=== PATIENT | female | born 1985 | race Caucasian/White ===

== ENCOUNTER 2020-08-01 19:32 | Emergency (ER) | payer BC, SELFPAY ==
--- NOTE | 2020-08-01 20:04 | USR_ITS ---
PROCEDURE INFORMATION: Exam: US , Limited Exam date and time: 08/01/2020 9:16 PM Age: 35 years old Clinical indication: Lmp or gestational age (in weeks): 10w6d; ; Prior surgery; Surgery date: 6+ months; Surgery type: RT ov removed due to endometrioma and torsion; Patient HX: Bright red bleeding x 1 day; Additional info: 10 wks preg bleeding TECHNIQUE: Imaging protocol: Real-time ultrasound of the maternal uterus with image documentation. Exam focused on the clinical indication. COMPARISON: No relevant prior studies available. FINDINGS: Gestation: [place] rump length 3.9 cm. Gestational sac 4.38 cm. Yolk sac 0.4 cm. heart rate: heart rate 176 bpm. BIOMETRY: Gestational age (AUA): Ultrasound gestational age 10 weeks 6 days MATERNAL: Cervix: Cervical length is 3.6 cm. Right adnexa: Right ovary has been removed. Left adnexa: Normal appearing left ovary. US/US OB limited [id number] IMPRESSION: Single viable intrauterine gestation. No acute abnormalities identified.
[2020-08-01 20:10] VITALS: BP 157/89; PULSE 93; RESP 16; TEMP 36.8; O2SAT 99; BMI 24.2
--- NOTE | 2020-08-01 21:53 | W.ED.FEMALGU ---
HPI - Female Genitourinary General: Chief complaint: Urogenital-Female Stated complaint: 10 WKS PREG, BLEEDING Time Seen by Provider: 08/01/20 21:48 Source: patient Mode of arrival: ambulatory Limitations: no limitations History of Present Illness: HPI Narrative: Patient is a very nice 35-year-old female at approximately 10 weeks here for concerns for an episode of vaginal bleeding. Patient tells me approximately 1 to 2 hours ago she noticed she had approximately 1 tablespoon of bright red blood after wiping. Patient tells me she has not had any further bleeding. She is not having any cramping or pain. Patient very concerned as her and her have been trying to conceive for over a year. Patient has OB established in [place], [place]. elicited complaint: vaginal bleeding Onset (ago): hour(s) Severity: mild Consistency: now resolved Vaginal bleeding: scant Associated symptoms: Reports no associated symptoms; Deny abdominal pain, nausea or vaginal discharge Treatment prior to arrival: none Sexual activity: Yes Patient : Yes Related Data: : 1 Para: 0 Review of Systems Const: Denies: fever(s) Card: Denies: chest pain Resp: Denies: dyspnea GI: Denies: abdominal pain, nausea or vomiting : Reports: vaginal bleeding; Denies: flank pain, dysuria, hematuria, genital lesions, genital pruritis, vaginal odor, vaginal discharge or pelvic pain Skin/Breast: Denies: rash [facility] ED Female Reproductive History: : 1 Physical Exam Const: COMMON NORMALS: no acute distress, average body habitus, no limitations, healthy appearing, alert and well nourished GENERAL APPEARANCE: cooperative GI: COMMON NORMALS: Normal to inspection, nondistended, normoactive bowel sounds present, Soft to palpation, non-tender, No hepatosplenomegaly present and no masses PALPATION: Yes Soft to palpation and Yes No hepatosplenomegaly present : COMMON NORMALS: Yes no CVA tenderness BLADDER/KIDNEY EXAM: Yes no CVA tenderness Back/Pelvis: COMMON NORMALS: no CVA tenderness Neuro: SENSORIUM/ORIENTATION: Yes alert Course Vital Signs: Vital signs: Vital Signs Temperature 98.2 F 08/01/20 20:10 Pulse Rate 93 08/01/20 20:10 Respiratory Rate 16 08/01/20 20:10 Blood Pressure 157/89 08/01/20 20:10 Pulse Oximetry 99 08/01/20 20:10 MDM - Female MDM Narrative: Medical decision making narrative: Patient's ultrasound shows a single live IUP at approximately 10w6d with HR of 176. Labs are non-concerning. She is A+ thus not requiring rhogam. Hcg corresponds to gestational age. I do not feel there is any reason to perform pelvic exam today. Recommend follow up with her OB which she agrees to. Return to ED precautions given. Lab Data: Labs: Lab Results 08/01/20 08/01/20 08/01/20 Range/Units 22:08 22:12 22:12 WBC 11.5 H (4.0-10.0) 10^3/ uL RBC 4.16 (4.1-5.3) 10^6/u L Hgb 13.2 (11.5-15.3) g/dL Hct 39.9 (37.0-47.0) % MCV 95.9 (81-99) fL MCH 31.7 (28.0-34.0) pg MCHC 33.1 (30.0-36.0) g/dL RDW 12.5 (12.1-15.1) % Plt Count 341 (130-400) 10^3/c mm MPV 9.6 (7.4-10.4) fL Neut % (Auto) 79.9 % Lymph % (Auto) 14.1 % Towns % (Auto) 5.2 % Eos % (Auto) 0.2 % Baso % (Auto) 0.3 % Neut # (Auto) 9.15 H (1.8-7.7) 10^3/u L Lymph # (Auto) 1.6 (0.8-4.8) 10^3/u L Towns # (Auto) 0.6 (0.2-0.9) 10^3/u L Eos # (Auto) 0.0 (0.0-0.8) 10^3/u L Baso # (Auto) 0.0 (0.0-0.1) 10^3/u L Nucleated RBC % (a uto) 0 % Nucleated RBCs # 0.0 /100WBC Sodium (136-145) mmol/L Potassium (3.5-5.1) mmol/L Chloride (98-107) mmol/L Carbon Dioxide (22-29) mmol/L Anion Gap (5-19) BUN (6-20) mg/dL Creatinine (0.5-0.9) mg/dL GFR Calculation (90-130) mL/min Glucose (65-115) mg/dL Calculated Osmolal ity (285-295) mOsm/k g Calcium (8.5-10.5) mg/dL Total Bilirubin (0.15-1.2) mg/dL AST (0-32) U/L ALT (0-33) U/L Alkaline Phosphata se (35-105) IU/L Total Protein (6.6-8.7) g/dL Albumin (3.5-5.2) g/dL Globulin (1.3-4.6) g/dL Ser , Yunior i-Qnt mIU/mL Urine Color Yellow (Yellow) Urine Appearance Clear (CLEAR) Urine pH 6 (5-7) Ur Specific Gravit y 1.010 (1.005-1.030) Urine Protein Neg (Negative) Urine Glucose (UA) Norm (Normal) Urine Ketones Negative (Negative) Urine Blood 2+ H (Negative) Urine Nitrate Negative (Negative) Urine Bilirubin Neg (Negative) Urine Urobilinogen Norm (Negative) mg/dL Ur Leukocyte Cristina ase Negative (Negative) Urine RBC 0-4 H (0-2) /hpf Urine WBC 0-4 H (0-5) /hpf Ur Squamous Epith Cells 0-4 H (0-5) /hpf Amorphous Sediment Not Reportable Urine Bacteria Trace (NONE) /hpf Blood Type A Positive Rho(D) Type Positive / 4+ 08/01/20 Range/Units 22:12 WBC (4.0-10.0) 10^3/ uL RBC (4.1-5.3) 10^6/u L Hgb (11.5-15.3) g/dL Hct (37.0-47.0) % MCV (81-99) fL MCH (28.0-34.0) pg MCHC (30.0-36.0) g/dL RDW (12.1-15.1) % Plt Count (130-400) 10^3/c mm MPV (7.4-10.4) fL Neut % (Auto) % Lymph % (Auto) % Towns % (Auto) % Eos % (Auto) % Baso % (Auto) % Neut # (Auto) (1.8-7.7) 10^3/u L Lymph # (Auto) (0.8-4.8) 10^3/u L Towns # (Auto) (0.2-0.9) 10^3/u L Eos # (Auto) (0.0-0.8) 10^3/u L Baso # (Auto) (0.0-0.1) 10^3/u L Nucleated RBC % (a uto) % Nucleated RBCs # /100WBC Sodium 133 L (136-145) mmol/L Potassium 3.7 (3.5-5.1) mmol/L Chloride 101 (98-107) mmol/L Carbon Dioxide 19 L (22-29) mmol/L Anion Gap 16.7 (5-19) BUN 11 (6-20) mg/dL Creatinine 0.5 (0.5-0.9) mg/dL GFR Calculation 142.1 H (90-130) mL/min Glucose 98 (65-115) mg/dL Calculated Osmolal ity 275 L (285-295) mOsm/k g Calcium 8.6 (8.5-10.5) mg/dL Total Bilirubin 0.2 (0.15-1.2) mg/dL AST 14 (0-32) U/L ALT 13 (0-33) U/L Alkaline Phosphata se 48 (35-105) IU/L Total Protein 7.2 (6.6-8.7) g/dL Albumin 4.1 (3.5-5.2) g/dL Globulin 3.1 (1.3-4.6) g/dL Ser , Yunior i-Qnt 179875.00 mIU/mL Urine Color (Yellow) Urine Appearance (CLEAR) Urine pH (5-7) Ur Specific Gravit y (1.005-1.030) Urine Protein (Negative) Urine Glucose (UA) (Normal) Urine Ketones (Negative) Urine Blood (Negative) Urine Nitrate (Negative) Urine Bilirubin (Negative) Urine Urobilinogen (Negative) mg/dL Ur Leukocyte Cristina ase (Negative) Urine RBC (0-2) /hpf Urine WBC (0-5) /hpf Ur Squamous Epith Cells (0-5) /hpf Amorphous Sediment Urine Bacteria (NONE) /hpf Blood Type Rho(D) Type Imaging Data: US OB: Radiologist's impression: [address] [address] Ultrasound Report Signed Patient: Aura Gallardo #: [id number] : 1985Acct#:[id number] Age/Sex: 35 / FADM Date: 08/01/20 Loc: ERRoom/Bed: Attending Dr: Ordering Provider/Ordering MD: Nat Wade Date of Service: 08/01/20 Procedure(s): US OB limited [id number] Accession Number(s): [id number] Report Number: [id number] PROCEDURE INFORMATION: Exam: US , Limited Exam date and time: 08/01/2020 9:16 PM Age: 35 years old Clinical indication: Lmp or gestational age (in weeks): 10w6d; ; Prior surgery; Surgery date: 6+ months; Surgery type: RT ov removed due to endometrioma and torsion; Patient HX: Bright red bleeding x 1 day; Additional info: 10 wks preg bleeding TECHNIQUE: Imaging protocol: Real-time ultrasound of the maternal uterus with image documentation. Exam focused on the clinical indication. COMPARISON: No relevant prior studies available. FINDINGS: Gestation: [place] rump length 3.9 cm. Gestational sac 4.38 cm. Yolk sac 0.4 cm. heart rate: heart rate 176 bpm. BIOMETRY: Gestational age (AUA): Ultrasound gestational age 10 weeks 6 days MATERNAL: Cervix: Cervical length is 3.6 cm. Right adnexa: Right ovary has been removed. Left adnexa: Normal appearing left ovary. US/US OB limited [id number] IMPRESSION: Single viable intrauterine gestation. No acute abnormalities identified. Dictated By:Jose Angel Valenzuela Signed By:Job Valenzuela Date/Time:08/01/202211 DD/ 11 Discharge Plan Discharge Patient Disposition: Home Clinical Impression: First trimester bleeding Condition: Stable Discharge Orders: Discharge ED (Routine); Ordered 08/01/20 Ordered By: Nat Wade Referrals: Logan Angel CADDIE SUPERVISOR-C [Primary Care Provider] - Patient Instructions: Threatened Miscarriage (ED) Activity Restrictions/Additional Instructions: As we discussed please contact your OB doctor on Tuesday for further instructions for follow-up. You may return to the emergency department at anytime for severe vaginal bleeding, cramping, severe pain, or any other concerns you may have. Coding Level of Care Code ED Procedure Analyst for Marianela Tim
[2020-08-01 22:38] LABS: Add Urine Microscopic? YES; Bacteria Urine TRACE /hpf; Bilirubin Urine Neg (Negative); Blood Urine 2+ (Negative); Glucose Urine UA Norm (Normal); Ketones Urine Negative (Negative); Leukocyte Esterase Urine Negative (Negative); Nitrate Urine Negative (Negative); Protein Urine Neg (Negative); RBC Urine 0-4 /hpf (0-2); Squamous Epithelial Cell Urine 0-4 /hpf (0-5); Urine Appearance Clear (CLEAR); Urine Color Yellow (Yellow); Urobilinogen Urine Norm (Negative); WBC Urine 0-4 /hpf (0-5); pH Urine 6 (5-7)
[2020-08-01 22:42] LABS: Basophils % 0.3 %; Eosinophils % 0.2 %; Hematocrit 39.9 % (37.0-47.0); Hemoglobin 13.2 g/dL (11.5-15.3); Lymphocytes # 1.6 10^3/uL (0.8-4.8); Lymphocytes % 14.1 %; Mean Corpuscular HGB Conc 33.1 g/dL (30.0-36.0); Mean Corpuscular Hemoglobin 31.7 pg (28.0-34.0); Mean Corpuscular Volume 95.9 fL (81-99); Mean Platelet Volume 9.6 fL (7.4-10.4); Monocytes # 0.6 10^3/uL (0.2-0.9); Monocytes % 5.2 %; Neutrophils # 9.15 10^3/uL (1.8-7.7); Neutrophils % 79.9 %; Nucleated Red Blood Cells % 0 %; Platelet Count 341 10^3/cmm (130-400); Red Blood Count 4.16 10^6/uL (4.1-5.3); Red Cell Distribution Width 12.5 % (12.1-15.1); White Blood Count 11.5 10^3/uL (4.0-10.0)
[2020-08-01 23:10] LABS: Alanine Aminotransferase 13 U/L (0-33); Albumin Level 4.1 g/dL (3.5-5.2); Alkaline Phosphatase 48 IU/L (35-105); Anion Gap 16.7 (5-19); Aspartate Amino Transferase 14 U/L (0-32); Blood Urea Nitrogen 11 mg/dL (6-20); Calcium 8.6 mg/dL (8.5-10.5); Carbon Dioxide 19 mmol/L (22-29); Chloride 101 mmol/L (98-107); Globulin 3.1 g/dL (1.3-4.6); Glomerular Filtration Rate 142.1 mL/min (90-130); Glucose 98 mg/dL (65-115); Osmolality Calculated 275 mOsm/kg (285-295); Potassium 3.7 mmol/L (3.5-5.1); Sodium 133 mmol/L (136-145); Total Bilirubin 0.2 mg/dL (0.15-1.2); Total Protein 7.2 g/dL (6.6-8.7)
== END 2020-08-01 23:59 | disposition home or self-care (01) ==
PROVIDERS: Emergency Provider Physician Assistant; PCP Nurse Practitioner
DX: O20.9 Hemorrhage in early pregnancy, unspecified (principal); Z3A.10 10 weeks gestation of pregnancy
CPT/HCPCS: 36415; 76815; 80053; 81001; 84702; 85025; 86900; 99283

== ENCOUNTER 2023-05-18 13:59 | Emergency (ER) | payer BC, SELFPAY ==
[2023-05-18 14:04] VITALS: BMI 24.2
[2023-05-18 14:07] VITALS: BP 133/84; PULSE 87; RESP 15; TEMP 36.7; O2SAT 99
[2023-05-18 14:54] LABS: Basophils % 0.6 %; Eosinophils % 0.2 %; Hematocrit 37.1 % (36-47); Lymphocytes # 0.6 10^3/uL (0.8-4.8); Lymphocytes % 12.6 %; Mean Corpuscular HGB Conc 32.3 g/dL (30-55); Mean Corpuscular Hemoglobin 30.3 pg (27-33); Mean Corpuscular Volume 93.7 fl (85-98); Mean Platelet Volume 9.2 fL (7.4-10.4); Monocytes # 0.6 10^3/uL (0.2-0.9); Monocytes % 13.2 %; Neutrophils # 3.55 10^3/uL (1.8-7.7); Neutrophils % 73.2 %; Nucleated Red Blood Cells % 0 %; Platelet Count 267 10^3/cmm (157-399); Red Blood Count 3.96 10^6/uL (3.85-5.65); Red Cell Distribution Width 12.7 % (12.1-15.1); White Blood Count 4.85 10^3/uL (3.29-11.43)
[2023-05-18 15:13] LABS: Alanine Aminotransferase 12 U/L (0-33); Albumin Level 4.3 g/dL (3.5-5.2); Alkaline Phosphatase 51 U/L (35-105); Anion Gap 12.7 (5-19); Aspartate Amino Transferase 16 U/L (0-32); Blood Urea Nitrogen 13 mg/dL (6-20); Calcium 9.4 mg/dL (8.5-10.5); Carbon Dioxide 27 mmol/L (22-29); Chloride 103 mmol/L (98-107); Creatinine Clr Calc Pharmacy 128.4984; Globulin 3.1 g/dL (1.3-4.6); Glomerular Filtration Rate 113.1 mL/min (90-130); Glucose 110 mg/dL (65-115); Osmolality Calculated 289 mOsm/kg (285-295); Potassium 3.7 mmol/L (3.5-5.1); Sodium 139 mmol/L (136-145); Total Bilirubin 0.2 mg/dL (0.15-1.2); Total Protein 7.4 g/dL (6.6-8.7)
[2023-05-18 15:17] LABS: HCG, Serum Qual Negative (Negative)
--- NOTE | 2023-05-18 16:58 | ED_ITS ---
Documented by User: DAY Loredo 05/18/23 18:06 HPI - Weakness 2 General: Chief complaint: Weakness Stated complaint: weakness, numbness right side of face Time Seen by Provider: 05/18/23 16:52 History of Present Illness: 38-year-old female comes in today with c omplaints of numbness to the right side of face, chest discomfort, abdominal discomfort, and tingling in all extremities. Patient reports the numbness to the face started this morning. Patient has had other symptoms prior to today. Patient only takes a One-A-Day vitamin. Patient takes no other routine medicines and denies any chronic medical problems. MD Complaint: numbness (Right side face) Onset (ago): hour(s) Duration: constant Location: face Migration: none Severity: mild Relieving factors: none Exacerbating factors: none Associated symptoms: Denies headache(s) Review of Systems 2 General: Reports: 10 or more systems reviewed and unremarkable except in HPI and below Neuro: Reports: other (Numbness of right side face); Denies: headache(s) or difficulty walking [facility] ED 2 Female Reproductive History: Date of last menstrual period: 04/26/23 Physical Exam 2 Const: COMMON NORMALS: alert HENMT: COMMON NORMALS: normocephalic HEAD & SCALP: normocephalic Neck/C-Spine: COMMON NORMALS: full ROM Chest: COMMONS NORMALS: normal inspection of the chest Resp: COMMON NORMALS: normal respiratory effort and clear to auscultation bilaterally AUSCULTATION: clear to auscultation bilaterally Cardio: COMMON NORMALS: regular rate and regular rhythm RATE: regular rate RHYTHM: regular rhythm GI: COMMON NORMALS: Soft to palpation and non-tender PALPATION: Yes Soft to palpation Back/Pelvis: COMMON NORMALS: thoracic and lumbar spine normal to inspection Extremity: COMMON NORMALS: full ROM Neuro: SENSORIUM/ORIENTATION: Yes alert Skin: COMMON NORMALS: turgor normal GENERAL SKIN EXAM: turgor normal Course 2 Vital Signs: Vital signs: Vital Signs Temperature 98.0 F 05/18/23 14:07 Pulse Rate 90 05/18/23 17:29 Respiratory Rate 18 05/18/23 17:29 Blood Pressure 133/84 05/18/23 14:07 Pulse Oximetry 98 05/18/23 17:29 Oxygen Delivery Me thod Room Air 05/18/23 17:29 MDM - Weakness Medical Decision Making 38-year-old female comes in today for complaints of numbness to the right side face. On exam patient moves all extremities well. No focal deficits are noted. Patient appears anxious. Patient appears in no pain. Vital signs are normal. Differential diagnosis includes but not limited to panic disorder, anxiety attack, electrolyte imbalance, Murguia's palsy, stroke syndrome, upper respiratory infection, viral syndrome, pneumonia. CBC and CMP and urinalysis were unremarkable. Chest x-ray showed no pneumonia. Head CT showed maxillary sinus mucous wall thickening but no intracranial abnormality. Believe the sensation is probably secondary to patient's sinus infection. EKG showed normal sinus rhythm. Reviewed exam with patient recommended treatment for rhinosinusitis and follow-up with primary care regarding anxiety. Patient reported understanding and agreed to plan. Lab Data 05/18/23 14:47 05/18/23 14:47 Radiology Impressions Chest X-Ray 05/18/23 16:58 IMPRESSION: No acute findings. Head CT 05/18/23 16:58 IMPRESSION: 1. Maxillary sinus mucosal thickening bilaterally with bilateral air-fluid levels. 2. No acute intracranial abnormality. Laboratory Results WBC 4.85 10^3/uL (3.29-11.43) 05/18/23 14:47 RBC 3.96 10^6/uL (3.85-5.65) 05/18/23 14:47 Hgb 12.00 g/dL (11.27-16.99) 05/18/23 14:47 Hct 37.1 % (36-47) 05/18/23 14:47 MCV 93.7 fl (85-98) 05/18/23 14:47 MCH 30.3 pg (27-33) 05/18/23 14:47 MCHC 32.3 g/dL (30-55) 05/18/23 14:47 RDW 12.7 % (12.1-15.1) 05/18/23 14:47 Plt Count 267 10^3/cmm (157-399) 05/18/23 14:47 MPV 9.2 fL (7.4-10.4) 05/18/23 14:47 Neut % (Auto) 73.2 % 05/18/23 14:47 Lymph % (Auto) 12.6 % 05/18/23 14:47 [place]igs % (Auto) 13.2 % 05/18/23 14:47 Eos % (Auto) 0.2 % 05/18/23 14:47 Baso % (Auto) 0.6 % 05/18/23 14:47 Neut # (Auto) 3.55 10^3/uL (1.8-7.7) 05/18/23 14:47 Lymph # (Auto) 0.6 10^3/uL (0.8-4.8) L 05/18/23 14:47 [place] # (Auto) 0.6 10^3/uL (0.2-0.9) 05/18/23 14:47 Eos # (Auto) 0.0 10^3/uL (0.0-0.8) 05/18/23 14:47 Baso # (Auto) 0.0 10^3/uL (0.0-0.1) 05/18/23 14:47 Nucleated RBC % (auto) 0 % 05/18/23 14:47 Nucleated RBCs # 0.0 /100WBC 05/18/23 14:47 Sodium 139 mmol/L (136-145) 05/18/23 14:47 Potassium 3.7 mmol/L (3.5-5.1) 05/18/23 14:47 Chloride 103 mmol/L (98-107) 05/18/23 14:47 Carbon Dioxide 27 mmol/L (22-29) 05/18/23 14:47 Anion Gap 12.7 (5-19) 05/18/23 14:47 BUN 13 mg/dL (6-20) 05/18/23 14:47 Creatinine 0.6 mg/dL (0.5-0.9) 05/18/23 14:47 GFR Calculation 113.1 mL/min (90-130) 05/18/23 14:47 Glucose 110 mg/dL (65-115) 05/18/23 14:47 Calculated Osmolality 289 mOsm/kg (285-295) 05/18/23 14:47 Calcium 9.4 mg/dL (8.5-10.5) 05/18/23 14:47 Total Bilirubin 0.2 mg/dL (0.15-1.2) 05/18/23 14:47 AST 16 U/L (0-32) 05/18/23 14:47 ALT 12 U/L (0-33) 05/18/23 14:47 Alkaline Phosphatase 51 U/L (35-105) 05/18/23 14:47 Total Protein 7.4 g/dL (6.6-8.7) 05/18/23 14:47 Albumin 4.3 g/dL (3.5-5.2) 05/18/23 14:47 Globulin 3.1 g/dL (1.3-4.6) 05/18/23 14:47 HCG, Qual Negative (Negative) 05/18/23 14:47 Urine Color Yellow (Yellow) 05/18/23 17:37 Urine Appearance Clear (CLEAR) 05/18/23 17:37 Urine pH 7 (5-7) 05/18/23 17:37 Ur Specific [place] 1.020 (1.005-1.030) 05/18/23 17:37 Urine Protein Neg (Negative) 05/18/23 17:37 Urine Glucose (UA) Norm (Normal) 05/18/23 17:37 Urine Ketones Negative (Negative) 05/18/23 17:37 Urine Blood Neg (Negative) 05/18/23 17:37 Urine Nitrate Negative (Negative) 05/18/23 17:37 Urine Bilirubin Neg (Negative) 05/18/23 17:37 Urine Urobilinogen Norm mg/dL (Negative) 05/18/23 17:37 Ur Leukocyte Esterase Negative (Negative) 05/18/23 17:37 All radiology interpretation(s) finalized by discharge EKG Data EKG 1: I personally reviewed and interpreted this EKG as follows: EKG interpretation date: 05/18/23 EKG interpretation time: 17:35 Prior EKG tracings: not available for review Interpretation: Sinus rhythm with a regular rate at [address] elevation or ectopy is noted. Mild artifact is noted. No prior exam was available for comparison. Computer generated interpretation: Sinus rhythm, normal EKG, unconfirmed report. Discharge Plan Discharge Patient Disposition: Home Clinical Impression: Acute rhinosinusitis, Anxiety attack Condition: Stable Prescriptions: New azithromycin 250 mg tablet 250 mg PO DAILY 4 Days Qty: 4 0RF Rx Instructions: start on day 2 of therapy hydroxyzine pamoate 25 mg capsule 25 mg PO Q8H PRN (Reason: anxiety) Qty: 20 0RF Discharge Orders: Discharge ED (Routine); Ordered 05/18/23 Ordered By: Rodolfo Kumar Referrals: Mariah Hernandez MD [Primary Care Provider] - Discharge Diet: Usual diet Discharge Activity: Increase activity as tolerated Patient Instructions: Rhinosinusitis (ED), Anxiety (ED) Activity Restrictions/Additional Instructions: Home and rest. Drink plenty water and fluids. You may call back in 2 to 3 hours for results of COVID and flu test. Use medications as directed. Follow- up with primary care for further evaluation and treatment. Return to ED for new concerns. Coding Level of Care Code ED Tobacco Buyer for Chg Fwd Documented by User: Ajay Noyola DO 05/18/23 18:08 HPI - Weakness 2 General: Chief complaint: Weakness Stated complaint: weakness, numbness right side of face Time Seen by Provider: 05/18/23 16:52 Course 2 Vital Signs: Vital signs: Vital Signs Temperature 98.0 F 05/18/23 14:07 Pulse Rate 90 05/18/23 17:29 Respiratory Rate 18 05/18/23 17:29 Blood Pressure 133/84 05/18/23 14:07 Pulse Oximetry 98 05/18/23 17:29 Oxygen Delivery Me thod Room Air 05/18/23 17:29 MDM - Weakness Medical Decision Making 38-year-old female comes in today for complaints of numbness to the right side face. On exam patient moves all extremities well. No focal deficits are noted. Patient appears anxious. Patient appears in no pain. Vital signs are normal. Differential diagnosis includes but not limited to panic disorder, anxiety attack, electrolyte imbalance, Murguia's palsy, stroke syndrome, upper respiratory infection, viral syndrome, pneumonia. CBC and CMP and urinalysis were unremarkable. Chest x-ray showed no pneumonia. Head CT showed maxillary sinus mucous wall thickening but no intracranial abnormality. Believe the sensation is probably secondary to patient's sinus infection. EKG showed normal sinus rhythm. Reviewed exam with patient recommended treatment for rhinosinusitis and follow-up with primary care regarding anxiety. Patient reported understanding and agreed to plan. Chart reviewed and patient discussed with midlevel. Agree with assessment and plan. Lab Data 05/18/23 14:47 05/18/23 14:47 Radiology Impressions Chest X-Ray 05/18/23 16:58 IMPRESSION: No acute findings. Head CT 05/18/23 16:58 IMPRESSION: 1. Maxillary sinus mucosal thickening bilaterally with bilateral air-fluid levels. 2. No acute intracranial abnormality. Laboratory Results WBC 4.85 10^3/uL (3.29-11.43) 05/18/23 14:47 RBC 3.96 10^6/uL (3.85-5.65) 05/18/23 14:47 Hgb 12.00 g/dL (11.27-16.99) 05/18/23 14:47 Hct 37.1 % (36-47) 05/18/23 14:47 MCV 93.7 fl (85-98) 05/18/23 14:47 MCH 30.3 pg (27-33) 05/18/23 14:47 MCHC 32.3 g/dL (30-55) 05/18/23 14:47 RDW 12.7 % (12.1-15.1) 05/18/23 14:47 Plt Count 267 10^3/cmm (157-399) 05/18/23 14:47 MPV 9.2 fL (7.4-10.4) 05/18/23 14:47 Neut % (Auto) 73.2 % 05/18/23 14:47 Lymph % (Auto) 12.6 % 05/18/23 14:47 Meigs % (Auto) 13.2 % 05/18/23 14:47 Eos % (Auto) 0.2 % 05/18/23 14:47 Baso % (Auto) 0.6 % 05/18/23 14:47 Neut # (Auto) 3.55 10^3/uL (1.8-7.7) 05/18/23 14:47 Lymph # (Auto) 0.6 10^3/uL (0.8-4.8) L 05/18/23 14:47 [place] # (Auto) 0.6 10^3/uL (0.2-0.9) 05/18/23 14:47 Eos # (Auto) 0.0 10^3/uL (0.0-0.8) 05/18/23 14:47 Baso # (Auto) 0.0 10^3/uL (0.0-0.1) 05/18/23 14:47 Nucleated RBC % (auto) 0 % 05/18/23 14:47 Nucleated RBCs # 0.0 /100WBC 05/18/23 14:47 Sodium 139 mmol/L (136-145) 05/18/23 14:47 Potassium 3.7 mmol/L (3.5-5.1) 05/18/23 14:47 Chloride 103 mmol/L (98-107) 05/18/23 14:47 Carbon Dioxide 27 mmol/L (22-29) 05/18/23 14:47 Anion Gap 12.7 (5-19) 05/18/23 14:47 BUN 13 mg/dL (6-20) 05/18/23 14:47 Creatinine 0.6 mg/dL (0.5-0.9) 05/18/23 14:47 GFR Calculation 113.1 mL/min (90-130) 05/18/23 14:47 Glucose 110 mg/dL (65-115) 05/18/23 14:47 Calculated Osmolality 289 mOsm/kg (285-295) 05/18/23 14:47 Calcium 9.4 mg/dL (8.5-10.5) 05/18/23 14:47 Total Bilirubin 0.2 mg/dL (0.15-1.2) 05/18/23 14:47 AST 16 U/L (0-32) 05/18/23 14:47 ALT 12 U/L (0-33) 05/18/23 14:47 Alkaline Phosphatase 51 U/L (35-105) 05/18/23 14:47 Total Protein 7.4 g/dL (6.6-8.7) 05/18/23 14:47 Albumin 4.3 g/dL (3.5-5.2) 05/18/23 14:47 Globulin 3.1 g/dL (1.3-4.6) 05/18/23 14:47 HCG, Qual Negative (Negative) 05/18/23 14:47 Urine Color Yellow (Yellow) 05/18/23 17:37 Urine Appearance Clear (CLEAR) 05/18/23 17:37 Urine pH 7 (5-7) 05/18/23 17:37 Ur Specific [place] 1.020 (1.005-1.030) 05/18/23 17:37 Urine Protein Neg (Negative) 05/18/23 17:37 Urine Glucose (UA) Norm (Normal) 05/18/23 17:37 Urine Ketones Negative (Negative) 05/18/23 17:37 Urine Blood Neg (Negative) 05/18/23 17:37 Urine Nitrate Negative (Negative) 05/18/23 17:37 Urine Bilirubin Neg (Negative) 05/18/23 17:37 Urine Urobilinogen Norm mg/dL (Negative) 05/18/23 17:37 Ur Leukocyte Esterase Negative (Negative) 05/18/23 17:37 Discharge Plan Discharge Patient Disposition: Home Clinical Impression: Acute rhinosinusitis, Anxiety attack Condition: Stable Prescriptions: New azithromycin 250 mg tablet 250 mg PO DAILY 4 Days Qty: 4 0RF Rx Instructions: start on day 2 of therapy hydroxyzine pamoate 25 mg capsule 25 mg PO Q8H PRN (Reason: anxiety) Qty: 20 0RF Discharge Orders: Discharge ED (Routine); Ordered 05/18/23 Ordered By: Rodolfo Kumar Referrals: Mariah Hernandez MD [Primary Care Provider] - Discharge Diet: Usual diet Discharge Activity: Increase activity as tolerated Patient Instructions: Rhinosinusitis (ED), Anxiety (ED) Activity Restrictions/Additional Instructions: Home and rest. Drink plenty water and fluids. You may call back in 2 to 3 hours for results of COVID and flu test. Use medications as directed. Follow- up with primary care for further evaluation and treatment. Return to ED for new concerns. Coding Level of Care Code ED Tobacco Buyer for Marianela Tim
--- NOTE | 2023-05-18 16:58 | XRR_ITS ---
PROCEDURE INFORMATION: Exam: XR Chest Exam date and time: 05/18/2023 5:24 PM Age: 38 years old Clinical indication: Chest wall pain; Additional info: Chest pain TECHNIQUE: Imaging protocol: Radiologic exam of the chest. Views: 1 view. COMPARISON: CT angio chest PE protcl [id number] 03/22/2019 9:57 PM FINDINGS: Lungs: Unremarkable. No consolidation. Pleural spaces: Unremarkable. No pleural effusion. No pneumothorax. Heart/Mediastinum: Unremarkable. No cardiomegaly. Bones/joints: Unremarkable. XR/XR chest 1V portable [id number] IMPRESSION: No acute findings.
--- NOTE | 2023-05-18 16:58 | CTR_ITS ---
PROCEDURE INFORMATION: Exam: CT Head Without Contrast Exam date and time: 05/18/2023 5:12 PM Age: 38 years old Clinical indication: Other: Facial numbness RT side; Additional info: Right facial numbness TECHNIQUE: Imaging protocol: Computed tomography of the head without contrast. Radiation optimization: All CT scans at this facility use at least one of these dose optimization techniques: automated exposure control; mA and/or kV adjustment per patient size (includes targeted exams where dose is matched to clinical indication); or iterative reconstruction. COMPARISON: CT head wo con* [id number] 03/22/2019 9:52 PM RADIATION DOSE METRICS: Total DLP (mGy-cm): 1079 FINDINGS: Brain: No midline shift. No mass, acute infarct, hemorrhage, or extra-axial fluid collection. Cerebral ventricles: No ventriculomegaly. Paranasal sinuses: Maxillary sinus mucosal thickening bilaterally with bilateral air-fluid levels. Mastoid air cells: Visualized mastoid air cells are well aerated. Bones/joints: Unremarkable. No acute fracture. Soft tissues: Unremarkable. CT/CT head wo con* [id number] IMPRESSION: 1. Maxillary sinus mucosal thickening bilaterally with bilateral air-fluid levels. 2. No acute intracranial abnormality.
--- NOTE | 2023-05-18 16:58 | ECG_ITS ---
[facility] Test Date: 2023-05-18 Pat Name: Aura Gallardo Department: Room: Gender: Female [place]: : 1985 Requested By: Rodolfo Jimenes Order Number: [id number] Dev MD: Edward Delacruz M.D. Measurements Intervals [place] Rate: 84 P: 35 WA: 147 QRS: 84 QRSD: 82 T: 23 QT: 328 QTc: 389 Interpretive Statements SINUS RHYTHM Compared to ECG 03/22/2019 21:12:57 Myocardial infarct finding no longer present Electronically Signed On 05-18-2023 18:56:06 SHIP'S OFFICER by Edward Delacruz M.D. [email or web address]
[2023-05-18] MEDS: LORazepam 0.5 mg Tablet PO (17:24)
[2023-05-18 17:29] VITALS: PULSE 90; RESP 18; O2SAT 98
[2023-05-18 17:43] LABS: Add Urine Microscopic? NO; Charge for UA Resulting for Rev
[2023-05-18 17:53] LABS: Bilirubin Urine Neg (Negative); Blood Urine Neg (Negative); Glucose Urine UA Norm (Normal); Ketones Urine Negative (Negative); Leukocyte Esterase Urine Negative (Negative); Nitrate Urine Negative (Negative); Protein Urine Neg (Negative); Urine Appearance Clear (CLEAR); Urine Color Yellow (Yellow); Urobilinogen Urine Norm (Negative); pH Urine 7 (5-7)
[2023-05-18] MEDS: azithromycin 250 mg Tablet 500 MG PO (18:05)
[2023-05-18] MEDS: ibuprofen 200 mg Tablet 400 MG PO (18:05)
[2023-05-18] MEDS: dexamethasone 10 mg/mL INJ IM (18:05)
[2023-05-18] MEDS: acetaminophen 500 mg Tablet PO (18:05)
[2023-05-18 18:40] LABS: SARS Covid-2 Antigen negative (Negative)
[2023-05-18 18:44] LABS: Influenza A by IFA Negative (Negative); Influenza B by IFA Negative (Negative)
== END 2023-05-18 18:29 | disposition home or self-care (01) ==
PROVIDERS: Emergency Provider Nurse Practitioner Family; PCP Family Medicine
DX: J01.90 Acute sinusitis, unspecified (principal); F41.9 Anxiety disorder, unspecified; Z11.52 Encounter for screening for COVID-19
CPT/HCPCS: 36415; 70450; 71045; 80053; 81003; 84703; 85025; 87426; 87804; 93005; 96372; 99285; J1100; Q0144